=== PATIENT | female | born 1960 | race Caucasian/White ===

== ENCOUNTER 2018-08-22 10:00 | Observation (INO) | payer OTHER ==
[~2018-08-22 10:00] MED LIST: LIDOCAINE 1% 20 ML VIAL (10MG/ML) FOR IV START INTRADERMA PRN
[2018-08-22] MEDS: LACTATED RINGERS 1,000 ML IV SCH ×2 (10:39→20:19)
[2018-08-22] MEDS ORDERED: PROPOFOL 10 MG/ML 20 ML VIAL IV ONE (11:24)
--- NOTE | 2018-08-22 11:47 | P.PCN ---
Date of Procedure: 08/22/18 Procedure(s) Performed: Brief history: Patient is a pleasant 57-year-old pleasant white female, scheduled for an elective upper endoscopy as well as colonoscopy as a part of evaluation of epigastric abdominal pain, nausea vomiting and chronic diarrhea with progressive weight loss of 30 pounds in the last 6 months duration. She has been taking [id number] Pepcid and Imodium with some relief in her symptoms. Procedure performed: Esophagogastroduodenoscopy with biopsy Colonoscopy with biopsy Preoperative diagnosis: Abdominal pain/nausea vomiting Chronic diarrhea and weight loss of 30 pounds Anesthesia: MAC Procedure: After informed consent was obtained from the patient was brought into the endoscopy unit and IV sedation was administered by anesthesia under continuous monitoring. Initially upper endoscopy was done. The Olympus GF 160 video endoscope was inserted inserted into the mouth and esophagus intubated without any difficulty and was gradually advanced into the stomach and duodenum and carefully examined. The bulb and second part of the duodenum appeared normal. Biopsies were done from the duodenum to evaluate for celiac disease. The scope was then withdrawn into the stomach adequately insufflated with air and upon careful examination the antrum had mild gastritis and biopsies were done from this area. The body, cardia and fundus appeared normal. The scope was then withdrawn into the esophagus. Mall hiatal hernia noted. The GE junction was located at 40 cm to the incisors. It appeared regular with no erythema erosions or ulcerations. Rest of the esophagus appeared normal. Patient tolerated the procedure well. At this time the patient continued to remain sedation. Initial digital rectal examination was normal. Olympus CF 160 video colonoscope was then inserted into the rectum and gradually advanced to the cecum without any difficulty. Careful examination was performed as the scope was gradually being withdrawn. The prep was excellent. Terminal ileum was normal. The cecum, ascending colon , transverse colon, descending colon, sigmoid colon and rectum appeared normal. Random biopsies were done from the ascending and descending colon to rule out microscopic/collagenous colitis. Retroflexion was performed in the rectum and no lesions were noted. Patient tolerated the procedure well. Impression: 1. Upper endoscopy revealed mild antral gastritis and a small hiatal hernia 2. Colonoscopy was essentially within normal limits with no evidence of colitis or colorectal neoplasia. Recommendations: Findings of this examination were discussed with the patient as well as well as her family. She'll follow with the biopsy results. She was advised to start on Prilosec 20 mg daily half hour before breakfast and continue Imodium as needed. She will be seen in office in 1 week.]
[2018-08-22] MEDS ORDERED: ONDANSETRON 4 MG/2 ML VIAL IVP ONE (12:11)
[2018-08-22] MEDS ORDERED: ONDANSETRON ODT 4 MG TAB PO ONE (13:14)
[2018-08-22] MEDS ORDERED: PROCHLORPERAZINE 5 MG TAB PO STA (13:40)
[2018-08-22] MEDS ORDERED: FAMOTIDINE 20 MG/2 ML VIAL IV ONE (15:14)
--- NOTE | 2018-08-22 15:16 | XR ---
EXAMINATION TYPE: XR abdomen 2V DATE OF EXAM: 08/22/2018 COMPARISON: None INDICATION: Perforation post EGD and colonoscopy TECHNIQUE: Single view abdomen with mobile apparatus in the upright and supine views. FINDINGS: No free air is identified. Air is within the stomach and left upper quadrant of the abdome n. Nonspecific bowel gas within the midabdomen. No mass effect is evident in the supine view. Organom egaly is not present. Psoas margins are normal. What little bowel gas is present. IMPRESSION: 1. Unremarkable Abdomen 2. No free air or changes suggest bowel perforation or radiographically apparent.
--- NOTE | 2018-08-22 16:08 | CT ---
EXAMINATION TYPE: CT abdomen pelvis wo con DATE OF EXAM: 08/22/2018 HISTORY: Post colonoscopy and EGD, rectal bleeding, abdominal pain and vomiting. CT DLP: 366.1 mGycm. Automated Exposure Control for Dose Reduction was Utilized. TECHNIQUE: CT scan of the abdomen and pelvis is performed without oral or IV contrast. COMPARISON: Abdominal x-ray earlier today FINDINGS: Within the limitations of a non-contrast study, the following observations are made. LUNG BASES: No significant abnormality is appreciated. LIVER/GB: Gallbladder has distended margins but there is no abnormal dilatation or CT dense intralumi nal gallstones or surrounding inflammatory change. PANCREAS: No significant abnormality is seen. SPLEEN: No significant abnormality is seen. ADRENALS: No significant abnormality is seen. KIDNEYS: There is 6 mm calculus lower pole level left kidney coronal image 59. No right-sided renal c alculus. No hydronephrosis or obstructing ureter calculi identified. BOWEL: Evaluation bowel is slightly suboptimal secondary to lack of enteric contrast. There is no param picious small or large bowel dilatation identified GENITAL ORGANS: Anteverted uterus is seen. Just superior to uterus there is round low dense 5.7 x 5.3 cm lesion causing mass effect on bladder. LYMPH NODES: No greater than 1cm abdominal or pelvic lymph nodes are appreciated. OSSEOUS STRUCTURES: There is transitional-type L6 vertebra at lumbosacral junction. Some multilevel f acet arthropathy lower lumbar spine is seen OTHER: No significant additional abnormality is seen. IMPRESSION: 1. No pneumoperitoneum. No obstruction. No significant acute finding seen on noncontrast CT to accoun t for patient's symptoms. 2. There is thin walled 5.7 cm low dense pelvic lesion presumed left ovarian in etiology, this is abn ormal finding in postmenopausal female and cystic neoplasm cannot be excluded. Advise gynecology onco logy referral and consider nonemergent pelvic ultrasound to further evaluate and characterize.
[2018-08-22 16:26] LABS: Basophils % (A) 0 %; Eosinophils % (A) 0 %; HCT 40.1 % (34.0-46.0); HGB 13.1 gm/dL (11.4-16.0); Lymphocytes # (A) 1.1 k/uL (1.0-4.8); Lymphocytes % (A) 6 %; MCH 30.2 pg (25.0-35.0); MCHC 32.8 g/dL (31.0-37.0); MCV 92.1 fL (80.0-100.0); Mean Platelet Volume 6.4; Monocytes # (A) 0.5 k/uL (0-1.0); Monocytes % (A) 3 %; Neutrophils # (A) 16.3 k/uL (1.3-7.7); Neutrophils % (A) 91 %; Platelet Count 321 k/uL (150-450); RBC 4.36 m/uL (3.80-5.40); RDW 11.8 % (11.5-15.5)
[2018-08-22 16:29] LABS: ALT 31 U/L (9-52); AST 25 U/L (14-36); Albumin 3.7 g/dL (3.5-5.0); Alkaline Phosphatase 66 U/L (38-126); Anion Gap 13 mmol/L; Blood Urea Nitrogen 19 mg/dL (7-17); Calcium 9.8 mg/dL (8.4-10.2); Carbon Dioxide 18 mmol/L (22-30); Chloride 110 mmol/L (98-107); Glucose 144 mg/dL (74-99); Potassium 3.7 mmol/L (3.5-5.1); Sodium 141 mmol/L (137-145); Total Bilirubin 0.8 mg/dL (0.2-1.3); Total Protein 6.3 g/dL (6.3-8.2)
[2018-08-22] MEDS ORDERED: ONDANSETRON 4 MG/2 ML VIAL IVP PRN (17:36)
[2018-08-22] MEDS ORDERED: ACETAMINOPHEN IV (For NPO) 1,000 MG in EMPTY BAG 1 BAG IVPB PRN (17:38)
[2018-08-22] MEDS ORDERED: IPRATROPIUM-ALBUTEROL 3 ML NEB INHALATION PRN (17:40)
[2018-08-22] MEDS ORDERED: TRIMETHOBENZAMIDE 100 MG/ML 2 ML VIAL IM PRN (17:45)
[2018-08-22] MEDS: METOCLOPRAMIDE 5 MG/ML 2 ML VIAL IVP SCH (17:52)
[2018-08-22] MEDS: IPRATROPIUM-ALBUTEROL 3 ML NEB INHALATION SCH (19:52)
[2018-08-22 20:09] VITALS: BMI 24.5
[2018-08-22] MEDS: PANTOPRAZOLE 40 MG/10 ML VIAL IVP SCH (20:30)
[2018-08-23] MEDS: METOCLOPRAMIDE 5 MG/ML 2 ML VIAL IVP SCH ×2 (04:20→09:05)
[2018-08-23] MEDS: LACTATED RINGERS 1,000 ML IV SCH ×2 (04:20→04:21)
[2018-08-23 04:56] VITALS: RESP 16
[2018-08-23] MEDS ORDERED: LEVOTHYROXINE 137 MCG TAB PO SCH (06:30)
[2018-08-23] MEDS: IPRATROPIUM-ALBUTEROL 3 ML NEB INHALATION SCH ×2 (07:13→10:58)
[2018-08-23 07:49] VITALS: BP 116/64; PULSE 80; TEMP 99.2
[2018-08-23] MEDS ORDERED: SYMBICORT 160-4.5 MCG INHALER INHALATION SCH (08:00)
[2018-08-23 08:07] LABS: Basophils % (A) 0 %; Eosinophils # (A) 0.1 k/uL (0-0.7); Eosinophils % (A) 0 %; HCT 37.8 % (34.0-46.0); HGB 12.6 gm/dL (11.4-16.0); Lymphocytes # (A) 1.9 k/uL (1.0-4.8); Lymphocytes % (A) 16 %; MCHC 33.4 g/dL (31.0-37.0); MCV 92.7 fL (80.0-100.0); Mean Platelet Volume 6.5; Monocytes # (A) 0.8 k/uL (0-1.0); Monocytes % (A) 7 %; Neutrophils # (A) 8.5 k/uL (1.3-7.7); Neutrophils % (A) 75 %; Platelet Count 290 k/uL (150-450); RBC 4.08 m/uL (3.80-5.40); WBC 11.4 k/uL (3.8-10.6)
[2018-08-23 08:16] LABS: Anion Gap 6 mmol/L; Blood Urea Nitrogen 15 mg/dL (7-17); Calcium 9.5 mg/dL (8.4-10.2); Carbon Dioxide 24 mmol/L (22-30); Chloride 111 mmol/L (98-107); Glucose 85 mg/dL (74-99); Potassium 3.9 mmol/L (3.5-5.1); Sodium 141 mmol/L (137-145)
[2018-08-23] MEDS: PANTOPRAZOLE 40 MG/10 ML VIAL IVP SCH (09:04)
--- NOTE | 2018-08-23 10:29 | P.HPIM ---
History of Present Illness H&P Date: 08/23/18 Chief Complaint: Nausea vomiting diarrhea abdominal pain 57-year-old female patient of Dr. Tao past medical history of asthma, hypothyroidism, ovarian cyst, and GERD. Patient presented yesterday for outpatient EGD colonoscopy secondary to persistent abdominal discomfort nausea, nonbloody emesis and nonbloody diarrhea without fever since March with an approximate 30 pound unintentional weight loss. [place] symptoms and states she underwent a battery of tests and was told it was possibly viral/gastroenteritis and discharged. Patient describes her abdominal pain as a "discomfort" generalized across the midabdomen with intermittent bloating. Takes Aleve intermittently as a needed. Intermittent dyspepsia. Appetite preserved but intolerant to spicy rich foods. She averages 1-2 loose bowel movements on a daily basis. No history of bowel disorders or inflammatory bowel diseases. EGD revealed mild antral gastritis and a small hiatal hernia. Colonoscopy was essentially within normal limits with no evidence of colitis or colorectal neoplasia random biopsies were obtained to rule out microscopic collagenous colitis. Postop patient experienced increased abdominal discomfort nausea abdominal x-rays Unremarkable no free air or changes to suggest bowel perforation. Computed tomography scan abdomen and pelvis without contrast reported no evidence of pneumoperitoneum no obstruction. No significant acute findings to account for patient's symptoms. Thin-walled 5.7 cm low dense pelvic lesion presumed left ovarian in etiology this is abnormal finding and postmenopausal female in cystic neoplasm could not be excluded. Advise MA[employer] PRINTER oncology referral and nonemergent pelvic ultrasound for further evaluation and characterization. Presently patient is resting comfortably tolerating a light diet. She passed a mildly blood tinged bowel movement postprocedure yesterday without recurrence. Presently no reports of hematemesis hematochezia or melena. Denies unusual vaginal discharge. She reports a history of cystic ovarian lesion many years ago that was laparoscopically removed by her MASTER PRINTER Dr. Pineda [facility]. Post endoscopic white count 18 presently 11.4. Hemoglobin 13.1 presently 12.6. Platelet 290. Sodium 141. Potassium 3.9. BUN 15. Creatinine 0.6. LFTs within normal limits. Afebrile. Normotensive blood pressures. Review of Systems Constitutional: Denies fever, chills, sweats, weight gain, reports weight loss. HEENT: Negative for migraines, blurred vision or loss, earaches, drainage, tinnitus, oral mucosal lesions, dysphagia, or odynophagia. CARDIAC: Negative for chest pain, arrhythmias, or palpitation. RESPIRATORY: Negative for shortness of breath, hemoptysis, cough, or sputum production. GI: See HPI for pertinent findings. : Negative for hematuria, urgency, frequency, polyuria, or dysuria. GYNc: Negative vaginal discharge. MUSCULOSKELETAL: Negative for muscle aches, swelling, arthritis, and arthralgias. NEUROLOGIC: Negative for stroke or TIA. ENDOCRINE: History of hypothyroidism. SKIN: Negative for rash or itching. 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 History of Any Multi-Drug Resistant Organisms: None Reported Past Surgical History: Orthopedic Surgery Additional Past Surgical History / Comment(s): OVARIAN CYST, CARPAL TUNNEL Past Anesthesia/Blood Transfusion Reactions: Motion Sickness, Postoperative Nausea & Vomiting (PONV) Past Psychological History: No Psychological Hx Reported Smoking Status: Never smoker Past Alcohol Use History: None Reported Past Drug Use History: None Reported - Past Family History Mother Family Medical History: Cancer Additional Family Medical History / Comment(s): BREAST CANCER Father Family Medical History: Blood Disorder Additional Family Medical History / Comment(s): VON WILLEBRAND CLOTTING DISORDER. Medications and Allergies Home Medications Medication Instructions Recorded Confirmed Type Albuterol Sulfate [Proair Hfa] 1 - 2 puff INHALATION RT-Q6H PRN 08/17/18 History Fluticasone/Salmeterol 1 puff INHALATION RT-DAILY 08/17/18 08/22/18 History [Fluticasone-Salmeterol 113-14] L.acidoph,Paracasei, B.lactis 1 cap PO DAILY 08/17/18 08/22/18 History [Probiotic] Levothyroxine Sodium 137 mcg PO DAILY 08/17/18 08/22/18 History Pepcid (Unknown Dose) 1 tab PO DAILY PRN 08/17/18 08/22/18 History Pravastatin Sodium [Pravachol] 20 mg PO HS 08/17/18 08/22/18 History Loperamide HCl [Imodium A-D] 2 - 4 mg PO QID PRN 08/22/18 08/22/18 History Allergies Allergy/AdvReac Type Severity Reaction Status Date / Time apple Allergy Unknown ITCHY Verified 08/22/18 23:22 THROAT beverly Allergy Unknown ITCHY Verified 08/22/18 23:22 THROAT FRUIT FROM TREES Allergy Unknown ITCHY Uncoded 08/17/18 12:06 THROAT Physical Exam Vitals: Vital Signs Temp Pulse Resp BP BP Pulse Ox 08/23/18 07:30 99.2 F 80 16 116/64 97 08/23/18 00:26 98.4 F 95 16 104/65 95 08/22/18 20:00 97.9 F 65 20 121/69 99 08/22/18 19:40 98.3 F 65 16 126/76 95 08/22/18 17:13 97.7 F 64 20 110/69 99 08/22/18 16:43 63 16 132/62 97 08/22/18 15:59 97.3 F L 63 16 119/59 97 08/22/18 15:10 63 16 119/59 97 08/22/18 14:47 63 16 122/66 97 08/22/18 14:27 66 16 117/59 99 08/22/18 14:03 96.7 F L 69 16 149/83 99 08/22/18 13:46 65 16 146/76 98 08/22/18 12:57 64 18 154/76 98 08/22/18 12:19 64 18 122/75 98 08/22/18 11:57 64 18 134/76 97 08/22/18 10:31 98.8 F 72 18 151/83 98 Intake and Output 08/22/18 08/23/18 08/23/18 22:59 06:59 14:59 Intake Total 300 1060 Output Total 51 Balance 249 1060 Intake: Intake, IV Titration 820 Amount Lactated Ringers 1,000 ml 820 @ 100 mls/hr IV .Q10H [facility] Rx#:[id number] Oral 300 240 Output: Stool 1 Emesis 50 Other: # Voids 2 3 Weight 58.967 kg General appearance: The patient is alert, oriented, in no acute distress. HET: Head is normocephalic and atraumatic. Pupils are equal and reactive. Oropharynx is clear without lesions. Neck: Supple without lymphadenopathy. Trachea midline. Heart: S1 S2. Regular rate and rhythm. Lungs: No crackles or wheezes are heard. Abdomen: Soft, nontender, nondistended with bowel sounds. No peritoneal signs. No palpable organomegaly or masses. Extremities: Normal skin color and turgor. No cyanosis, rash, ulceration, clubbing, or edema. Radial and pedal pulses are 2/4 bilaterally. Neurological: No focal deficits. Strength and sensation are grossly intact. Results CBC & Chem 7: 08/23/18 07:39 08/23/18 07:39 Labs: Abnormal Lab Results - Last 24 Hours (Table) 08/22/18 08/22/18 08/23/18 Range/Units 15:39 15:39 07:39 WBC 18.0 H 11.4 H (3.8-10.6) k/uL Neutrophils # 16.3 H 8.5 H (1.3-7.7) k/uL Chloride 110 H (98-107) mmol/L Carbon Dioxide 18 L (22-30) mmol/L BUN 19 H (7-17) mg/dL Glucose 144 H (74-99) mg/dL 08/23/18 Range/Units 07:39 WBC (3.8-10.6) k/uL Neutrophils # (1.3-7.7) k/uL Chloride 111 H (98-107) mmol/L Carbon Dioxide (22-30) mmol/L BUN (7-17) mg/dL Glucose (74-99) mg/dL Abdominal x-ray: report reviewed (Dr. Ewing) CT scan - abdomen: report reviewed (Dr. Ewing) Thrombosis Risk Factor Assmnt - DVT/VTE Prophylaxis DVT/VTE Prophylaxis: Low risk, early ambulation encouraged - Choose All That Apply Each Factor Represents 1 point: Acute LA Other Risk Factors: No Other congenital or acquired thrombophilia - If yes, enter type in comment: No Thrombosis Risk Factor Assessment Total Risk Factor Score: 1 Thrombosis Risk Factor Assessment Level: Low Risk Assessment and Plan (1) Abdominal pain Narrative/Plan: 57-year-old female with a 5 month history of intractable nausea vomiting nonbloody diarrhea abdominal pain of unclear etiology. Status post EGD colonoscopy essentially within normal limits random biopsies obtained to rule out microscopic collagenous colitis. She developed postoperative abdominal discomfort nausea CT abdomen ruled out pneumoperitoneum and bowel obstruction however thin walled 5.7 cm cystic lesion was identified presumed left ovarian in etiology cystic neoplasm could not be excluded. Current Visit: Yes Status: Acute Code(s): R10.9 - UNSPECIFIED ABDOMINAL PAIN SNOMED Code(s): 72825312 (2) Nausea & vomiting Current Visit: Yes Status: Acute Code(s): R11.2 - NAUSEA WITH VOMITING, UNSPECIFIED SNOMED Code(s): 93090998 (3) Diarrhea Current Visit: Yes Status: Acute Code(s): R19.7 - DIARRHEA, UNSPECIFIED SNOMED Code(s): 69843471 (4) Unintentional weight loss Current Visit: Yes Status: Acute Code(s): R63.4 - ABNORMAL WEIGHT LOSS SNOMED Code(s): 934950019 (5) Ovarian cyst, left Current Visit: Yes Status: Acute Code(s): N83.202 - UNSPECIFIED OVARIAN CYST , LEFT SIDE SNOMED Code(s): 16045779 (6) Hypothyroidism Current Visit: Yes Status: Chronic Code(s): E03.9 - HYPOTHYROIDISM, UNSPECIFIED SNOMED Code(s): 73075131 (7) GERD (gastroesophageal reflux disease) Current Visit: Yes Status: Chronic Code(s): K21.9 - GASTRO-ESOPHAGEAL REFLUX DISEASE WITHOUT ESOPHAGITIS SNOMED Code(s): 136498480 Plan: 1. CT results were discussed with patient and her spouse she was offered inpatient MASTER PRINTER consultation if she is not able to follow-up with her personal MASTER PRINTER in a timely fashion. She agreed to decline inpatient MASTER PRINTER evaluation and will follow-up with her personal MASTER PRINTER Dr. Pineda for further evaluation on August 31. Follow up in GI office on August 27 to discuss biopsy results. Continue with GI prophylaxis Pepcid 20 mg daily may take up to twice daily as needed. If no relief from Pepcid patient may try Prilosec 20 mg daily [id number] as well as Imodium as needed for diarrhea. Avoid NSAIDs as this may exacerbate her diarrhea until colonic biopsies can be discussed. Extra Strength Tylenol was advised for abdominal discomfort. Diet as tolerated. All questions were answered to her satisfaction. This history and physical was discussed with Dr. Ewing. The impression and plan a care have been directed as dictated.
--- NOTE | 2018-08-23 11:01 | P.DS ---
Providers Date of admission: 08/22/18 21:40 Expected date of discharge: 08/23/18 Attending physician: Stephanie Wiggins Primary care physician: He Tao - Discharge Diagnosis(es) (1) Abdominal pain Current Visit: Yes Status: Acute (2) Nausea & vomiting Current Visit: Yes Status: Acute (3) Diarrhea Current Visit: Yes Status: Acute (4) Unintentional weight loss Current Visit: Yes Status: Acute (5) Ovarian cyst, left Current Visit: Yes Status: Acute (6) Hypothyroidism Current Visit: Yes Status: Chronic (7) GERD (gastroesophageal reflux disease) Current Visit: Yes Status: Chronic Hospital Course: 57-year-old female presented for outpatient EGD colonoscopy for evaluation of persistent nausea vomiting abdominal pain and diarrhea 5 months with unintentional 30 pound weight loss. Post-endoscopy she developed increased abdominal pain nausea. She was kept overnight for observation. CT abdomen and abdominal film imaging reported no evidence of pneumoperitoneum or bowel obstruction however CT reported a thin-walled 5.7 cm cystic lesion felt to be arising from the left ovary cystic neoplasm could not be excluded. Prior to discharge she was tolerating a light diet without abdominal pain. No evidence of hematemesis hematochezia or melena. CT results were discussed with her the option of inpatient [employer]OR OF [employer] consultation and further workup with CT findings however after discussion with her spouse she expressed desire to follow up with her own [employer]ETING appointment scheduled August 31. Pertinent Studies: Abdominal x-ray CT abdomen and pelvis Procedures: EGD colonoscopy performed 08/22/2018 Patient Condition at Discharge: Stable Plan - Discharge Summary Discharge Rx Participant: Yes New Discharge Prescriptions: Continue Levothyroxine Sodium 137 mcg PO DAILY Albuterol Sulfate [Proair Hfa] 1 - 2 puff INHALATION RT-Q6H PRN PRN Reason: Shortness Of Breath Pravastatin Sodium [Pravachol] 20 mg PO HS Pepcid (Unknown Dose) 1 tab PO DAILY PRN PRN Reason: Heartburn L.acidoph,Paracasei, B.lactis [Probiotic] 1 cap PO DAILY Fluticasone/Salmeterol [Fluticasone-Salmeterol 113-14] 1 puff INHALATION RT- DAILY Loperamide HCl [Imodium A-D] 2 - 4 mg PO QID PRN PRN Reason: Diarrhea Discontinued Naproxen Sodium [Aleve] 220 mg PO DAILY PRN PRN Reason: Pain Discharge Medication List Albuterol Sulfate [Proair Hfa] 1 - 2 puff INHALATION RT-Q6H PRN 08/17/18 [ History] Fluticasone/Salmeterol [Fluticasone-Salmeterol 113-14] 1 puff INHALATION RT- DAILY 08/17/18 [History] L.acidoph,Paracasei, B.lactis [Probiotic] 1 cap PO DAILY 08/17/18 [History] Levothyroxine Sodium 137 mcg PO DAILY 08/17/18 [History] Pepcid (Unknown Dose) 1 tab PO DAILY PRN 08/17/18 [History] Pravastatin Sodium [Pravachol] 20 mg PO HS 08/17/18 [History] Loperamide HCl [Imodium A-D] 2 - 4 mg PO QID PRN 08/22/18 [History] Follow up Appointment(s)/Referral(s): Lulu Ewing MD [STAFF PHYSICIAN] - 09/03/18 4:30 pm Patient Instructions/Handouts: *Surgery [facility] - (Anesthesia) Endoscopy Discharge Instructions, Hiatal Hernia (DC), Gastritis (DC), Colonoscopy (DC), Upper Endoscopy (DC)
== END 2018-08-23 11:35 | disposition home or self-care (01) ==
LOC: ORWHC2ENDO 10:00 → 4SSUR 16:26 → ORWHC2ENDO 22:09
PROVIDERS: ADMIT Internal Medicine Gastroenterology; ATTEND Internal Medicine Gastroenterology
DX: K52.9 Noninfective gastroenteritis and colitis, unspecified (principal); R11.2 Nausea with vomiting, unspecified; K21.9 Gastro-esophageal reflux disease without esophagitis; R63.4 Abnormal weight loss; J45.909 Unspecified asthma, uncomplicated; N83.202 Unspecified ovarian cyst, left side; E03.9 Hypothyroidism, unspecified; Z68.24 Body mass index [BMI] 24.0-24.9, adult; D68.0 Von Willebrand disease; Z80.3 Family history of malignant neoplasm of breast; Z79.899 Other long term (current) drug therapy; Z79.890 Hormone replacement therapy; Z91.018 Allergy to other foods; I25.2 Old myocardial infarction
CPT/HCPCS: 88305; 80053; 80048; 85025 ×2; 74019; 74176; 45380; 43239; G0378 ×2; S0183; J2765; J2405; J2704; C9113 ×2

== ENCOUNTER → 2019-05-24 | Outpatient (CLI) | payer OTHER ==
--- NOTE | 2019-05-24 12:23 | XR ---
EXAMINATION TYPE: XR shoulder complete LT DATE OF EXAM: 05/24/2019 CLINICAL HISTORY: Left shoulder pain TECHNIQUE: Three views of the left shoulder are obtained. COMPARISON: None. FINDINGS: There is no acute fracture/dislocation evident in the left shoulder. There is a sclerotic focus that appears well marginated within the humeral head, likely a benign bone island. However on the internal rotation view this may be located outside the humeral head. The acromioclavicular and gl enohumeral joint spaces appear aligned however there is mild acromioclavicular arthropathy with small marginal osteophytes. The visualized ribs are intact and unremarkable. IMPRESSION: 1. No acute fracture or dislocation in the left shoulder. 2. Mild left acromioclavicular arthropathy. 3. Well marginated rounded focus of the humeral head may represent a benign bone island. On a single view this appears outside of the humerus and loose joint body is possible.
== END | disposition home or self-care (01) ==
LOC: RADXRYALE 11:55
PROVIDERS: ATTEND Family Medicine
DX: M12.812 Other specific arthropathies, not elsewhere classified, left shoulder (principal)

== ENCOUNTER 2019-07-10 20:51 | Observation (INO) | payer OTHER ==
[2019-07-10] MEDS ORDERED: SODIUM CHLORIDE 0.9% 1,000 ML IV STA (21:16)
--- NOTE | 2019-07-10 21:17 | ED ---
Nausea/Vomiting/Diarrhea HPI - General Chief complaint: Nausea/Vomiting/Diarrhea Stated complaint: NVD Time Seen by Provider: 07/10/19 21:15 Source: patient Mode of arrival: ambulatory Limitations: no limitations - History of Present Illness Initial comments: Carol jogahn-[id number]-bey female with a history of chronic nausea, vomiting, diarrhea, patient is followed with gastroenterology for over a year due to the symptoms. Patient reports the symptoms wax and wane. She's been compliant with her medications including PPI, antiemetic, probiotics and them as needed. Patient states that approximately 3 days ago she isn't possible that she thought made her sick. She states that for the past 3 days she's had persistent nausea and inability to tolerate any by mouth intake and multiple bouts of nonbloody diarrhea. Patient reports at this time she's having watery diarrhea to the point that she occasionally can't even make it to the bathroom. She's not been on any antibiotics recently she has no history of C. diff. She reports diffuse crampy abdominal pain which worsens with bouts of diarrhea and waxes and wanes. Patient's last colonoscopy was approximately one year ago was unremarkable at that time though she did have significant pain after the procedure and was admitted to the hospital due to concern for possible bowel perforation. - Related Data Home Medications Medication Instructions Recorded Confirmed Albuterol Sulfate [Proair Hfa] 1 - 2 puff INHALATION RT-Q6H PRN 08/17/18 07/10/19 Fluticasone/Salmeterol 1 puff INHALATION RT-DAILY 08/17/18 07/10/19 [Fluticasone-Salmeterol 113-14] L.acidoph,Paracasei, B.lactis 1 cap PO DAILY 08/17/18 07/10/19 [Probiotic] Loperamide HCl [Imodium A-D] 2 - 4 mg PO QID PRN 08/22/18 07/10/19 Cholestyramine (with Sugar) 4 gm PO DAILY 07/10/19 07/10/19 [Cholestyramine Packet] Levothyroxine Sodium [Synthroid] 112 mcg PO DAILY 07/10/19 07/10/19 Allergies Allergy/AdvReac Type Severity Reaction Status Date / Time apple Allergy Unknown ITCHY Verified 07/10/19 21:17 THROAT beverly Allergy Unknown ITCHY Verified 07/10/19 21:17 THROAT FRUIT FROM TREES Allergy Unknown ITCHY Uncoded 08/17/18 12:06 THROAT Review of Systems ROS Statement: Those systems with pertinent positive or pertinent negative responses have been documented in the HPI. ROS Other: All systems not noted in ROS Statement are negative. 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 History of Any Multi-Drug Resistant Organisms: None Reported Past Surgical History: Orthopedic Surgery Additional Past Surgical History / Comment(s): OVARIAN CYST, CARPAL TUNNEL Past Anesthesia/Blood Transfusion Reactions: Motion Sickness, Postoperative Nausea & Vomiting (PONV) Past Psychological History: No Psychological Hx Reported Smoking Status: Never smoker Past Alcohol Use History: None Reported Past Drug Use History: None Reported - Past Family History Mother Family Medical History: Cancer Additional Family Medical History / Comment(s): BREAST CANCER Father Family Medical History: Blood Disorder Additional Family Medical History / Comment(s): VON WILLEBRAND CLOTTING DISORDER. General Exam - General Exam Comments Initial Comments: Physical Exam GENERAL: Appears dehydrated HENT: Normocephalic, Atraumatic. Dry mucous membranes EYES: PERRL, EOMI PULMONARY: Unlabored respirations. No audible rales rhonchi or wheezing was noted. CARDIOVASCULAR: There is a regular rate and rhythm without any murmurs gallops or rubs. ABDOMEN: Soft and nontender with normal bowel sounds. Non-peritoneal SKIN: Skin is clear with no lesions or rashes and otherwise unremarkable. : Deferred NEUROLOGIC: Patient is alert and oriented x3. Moving all extremities spontaneously MUSCULOSKELETAL: Normal extremities with adequate strength and full range of motion. No lower extremity swelling or edema. No calf tenderness. PSYCHIATRIC: Normal psychiatric evaluation. Limitations: no limitations Course Vital Signs 07/10/19 07/10/19 21:04 22:02 Temperature 98.5 F 98.6 F Pulse Rate 73 64 Respiratory 18 18 Rate Blood Pressure 122/82 119/82 O2 Sat by Pulse 100 96 Oximetry Medical Decision Making - Medical Decision Making Patient was seen and evaluated patient's had 3 days of nausea vomiting diarrhea. Labs and imaging were ordered Labs with no significant abnormalities no evidence of dehydration L or joint abnormalities however patient did have multiple episodes of diarrhea while in the emergency department. Given patient's symptoms she doesn't feel comfortable going home at this time. Patient will be placed in observation, Zofran, Reglan and Benadryl as well as Bentyl were ordered GI was consulted for continuity of care - Lab Data Result diagrams: 07/10/19 21:36 07/10/19 21:36 Lab Results 07/10/19 07/10/19 07/10/19 Range/Units 21:36 21:36 21:36 WBC 7.9 (3.8-10.6) k/uL RBC 4.97 (3.80-5.40) m/uL Hgb 14.7 (11.4-16.0) gm/dL Hct 45.6 (34.0-46.0) % MCV 91.8 (80.0-100.0) fL MCH 29.5 (25.0-35.0) pg MCHC 32.1 (31.0-37.0) g/dL RDW 12.0 (11.5-15.5) % Plt Count 315 (150-450) k/uL Neutrophils % 84 % Lymphocytes % 5 % Monocytes % 6 % Eosinophils % 1 % Basophils % 3 % Neutrophils # 6.6 (1.3-7.7) k/uL Lymphocytes # 0.4 L (1.0-4.8) k/uL Monocytes # 0.5 (0-1.0) k/uL Eosinophils # 0.1 (0-0.7) k/uL Basophils # 0.2 (0-0.2) k/uL Sodium 138 (137-145) mmol/L Potassium 3.7 (3.5-5.1) mmol/L Chloride 100 (98-107) mmol/L Carbon Dioxide 22 (22-30) mmol/L Anion Gap 16 mmol/L BUN 17 (7-17) mg/dL Creatinine 0.77 (0.52-1.04) mg/dL Est GFR (CKD-EPI)AfAm >90 (>60 ml/min/1.73 sqM) Est GFR (CKD-EPI)NonAf 84 (>60 ml/min/1.73 sqM) Glucose 108 H (74-99) mg/dL Calcium 9.7 (8.4-10.2) mg/dL Magnesium 2.2 (1.6-2.3) mg/dL Total Bilirubin 0.6 (0.2-1.3) mg/dL AST 32 (14-36) U/L ALT 34 (9-52) U/L Alkaline Phosphatase 88 (38-126) U/L Total Protein 7.8 (6.3-8.2) g/dL Albumin 4.7 (3.5-5.0) g/dL Lipase 96 (23-300) U/L Urine Color Yellow Urine Appearance Cloudy H (Clear) Urine pH 5.5 (5.0-8.0) Ur Specific [place] 1.028 (1.001-1.035) Urine Protein 1+ H (Negative) Urine Glucose (UA) Negative (Negative) Urine Ketones 2+ H (Negative) Urine Blood Small H (Negative) Urine Nitrite Negative (Negative) Urine Bilirubin Negative (Negative) Urine Urobilinogen 2.0 (<2.0) mg/dL Ur Leukocyte Esterase Negative (Negative) Urine WBC 1 (0-5) /hpf Ur Squamous Epith Cells 2 (0-4) /hpf Urine Bacteria Rare H (None) /hpf Urine Mucus Many H (None) /hpf Disposition Clinical Impression: Nausea & vomiting, Diarrhea, Abdominal pain Disposition: ADMITTED IP TO THIS HOSP Condition: Stable Is patient prescribed a controlled substance at d/c from ED?: No Referrals: He Tao DO [Primary Care Provider] - 1-2 days
[2019-07-10] MEDS ORDERED: FAMOTIDINE 20 MG/2 ML VIAL IV STA (21:48)
[2019-07-10] MEDS ORDERED: ONDANSETRON 4 MG/2 ML VIAL IVP STA (21:48)
[2019-07-10 21:50] LABS: Basophils # (A) 0.2 k/uL (0-0.2); Basophils % (A) 3 %; Eosinophils # (A) 0.1 k/uL (0-0.7); Eosinophils % (A) 1 %; HCT 45.6 % (34.0-46.0); HGB 14.7 gm/dL (11.4-16.0); Lymphocytes # (A) 0.4 k/uL (1.0-4.8); Lymphocytes % (A) 5 %; MCH 29.5 pg (25.0-35.0); MCHC 32.1 g/dL (31.0-37.0); MCV 91.8 fL (80.0-100.0); Mean Platelet Volume 6.1; Monocytes # (A) 0.5 k/uL (0-1.0); Monocytes % (A) 6 %; Neutrophils # (A) 6.6 k/uL (1.3-7.7); Neutrophils % (A) 84 %; Platelet Count 315 k/uL (150-450); RBC 4.97 m/uL (3.80-5.40); WBC 7.9 k/uL (3.8-10.6)
[2019-07-10 21:59] LABS: ALT 34 U/L (9-52); AST 32 U/L (14-36); African American GFR (CKD) >90 (>60 ml/min/1.73 sqM); Albumin 4.7 g/dL (3.5-5.0); Alkaline Phosphatase 88 U/L (38-126); Anion Gap 16 mmol/L; Blood Urea Nitrogen 17 mg/dL (7-17); Calcium 9.7 mg/dL (8.4-10.2); Carbon Dioxide 22 mmol/L (22-30); Chloride 100 mmol/L (98-107); Glucose 108 mg/dL (74-99); Magnesium 2.2 mg/dL (1.6-2.3); Potassium 3.7 mmol/L (3.5-5.1); Sodium 138 mmol/L (137-145); Total Bilirubin 0.6 mg/dL (0.2-1.3); Total Protein 7.8 g/dL (6.3-8.2)
--- NOTE | 2019-07-10 21:59 | XR ---
EXAMINATION TYPE: XR KUB DATE OF EXAM: 07/10/2019 COMPARISON: 08/22/2018 HISTORY: Abdominal pain TECHNIQUE: 2 views FINDINGS: 2 views upright show no sign of intestinal obstruction or pneumoperitoneum. Fecal pattern i s normal. There is a 4 mm calcification over the lower pole left kidney. Lung bases are clear. There is no sign of a mass. IMPRESSION: Nonacute abdomen. Possible left renal calculus.
[2019-07-10 22:00] LABS: Appearance,Urine Cloudy (Clear); Bacteria,Urine Rare /hpf; Bilirubin,Urine Negative (Negative); Blood,Urine Small (Negative); Color,Urine Yellow; Glucose,Urine (UA) Negative (Negative); Ketones,Urine 2+ (Negative); Leukocyte Esterase,Urine Negative (Negative); Mucus,Urine Many /hpf; Nitrite,Urine Negative (Negative); PH, Urine 5.5 (5.0-8.0); Protein,Urine 1+ (Negative); Specific Gravity,Urine 1.028 (1.001-1.035); Squamous Epithelial Cell,Urine 2 /hpf (0-4)
[2019-07-10] MEDS ORDERED: ONDANSETRON 4 MG/2 ML VIAL IVP PRN (22:38)
[2019-07-10] MEDS ORDERED: NALOXONE 0.4 MG/ML 1 ML VIAL IV PRN (22:38)
[2019-07-10] MEDS ORDERED: DICYCLOMINE 10 MG/ML 2 ML AMP IM STA (22:41)
[2019-07-10] MEDS ORDERED: METOCLOPRAMIDE 5 MG/ML 2 ML VIAL IVP PRN (22:41)
[2019-07-10] MEDS ORDERED: diphenhydrAMINE 50 MG/ML 1 ML VIAL IVP PRN (22:41)
[2019-07-10] MEDS: SODIUM CHLORIDE 0.9% 1,000 ML IV SCH (23:17)
[2019-07-11] MEDS ORDERED: LOPERAMIDE 2 MG CAP PO PRN (11:18)
[2019-07-11] MEDS ORDERED: ALBUTEROL NEBULIZED 2.5 MG/3 ML INHALATION PRN (11:18)
[2019-07-11] MEDS: SODIUM CHLORIDE 0.9% 1,000 ML IV SCH ×2 (11:43→22:07)
--- NOTE | 2019-07-11 13:52 | P.HPIM ---
History of Present Illness 1-year-old female with a history of chronic diarrhea has been going on for about one year feeling better lately after symptomatic treatment. Patient is undergoing evaluation as an outpatient and gastroenterology clinic and had a col onoscopy which was within normal limits and the radiology set being worked up as an outpatient came in with symptoms of multiple of episodes of diarrhea which started Monday. Patient this time is also having epigastric abdominal discomfort along with nausea vomiting. C. diff is being obtained patient will be resumed on symptomatically therapy for diarrhea possible as positive C. diff is extremely low. We'll studies as per gastroenterology gastroneurology was consulted. Patient is requesting nutrition consult as she cannot tolerate diet 3 stuff including cheese which may be contributing to his chronic diarrhea 2. Acute diarrhea may be related to gastroenteritis although patient denied any fever chills body aches. Patient's serum creatinine is within normal lives patient clinically doesn't appear to be much dehydrated either. Patient denied any blood in stools. Patient denied any recent travel or camping. Patient denied any dysuria or increased urinary frequency and weakness with abnormal but not concerning for urinary tract infection. Review of Systems REVIEW OF SYSTEMS: CONSTITUTIONAL: No fever, no malaise, no fatigue. HEENT: No recent visual problems or hearing problems. Denied any sore throat. CARDIOVASCULAR: No chest pain, orthopnea, PND, no palpitations, no syncope. PULMONARY: No shortness of breath, no cough, no hemoptysis. GASTROINTESTINAL: As mentioned in HPI NEUROLOGICAL: No headaches, no weakness, no numbness. HEMATOLOGICAL: Denies any bleeding or petechiae. GENITOURINARY: Denies any burning micturition, frequency, or urgency. MUSCULOSKELETAL/RHEUMATOLOGICAL: Denies any joint pain, swelling, or any muscle pain. ENDOCRINE: Denies any polyuria or polydipsia. The rest of the 14-point review of systems is negative. 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., STATES SHE IS HAVING VOMITING AND DIARRHEA., WT LOSS OF 25 # OVER THE LAST year History of Any Multi-Drug Resistant Organisms: None Reported Past Surgical History: Orthopedic Surgery Additional Past Surgical History / Comment(s): OVARIAN CYST x 2 , CARPAL TUNNEL Past Anesthesia/Blood Transfusion Reactions: Motion Sickness, Postoperative Nausea & Vomiting (PONV) Past Psychological History: No Psychological Hx Reported Smoking Status: Never smoker Past Alcohol Use History: None Reported Past Drug Use History: None Reported - Past Family History Mother Family Medical History: Cancer Additional Family Medical History / Comment(s): BREAST CANCER Father Family Medical History: Blood Disorder Additional Family Medical History / Comment(s): VON WILLEBRAND CLOTTING DISORDER. Medications and Allergies Home Medications Medication Instructions Recorded Confirmed Type Albuterol Sulfate [Proair Hfa] 1 - 2 puff INHALATION RT-Q6H PRN 08/17/1811/27 History Fluticasone/Salmeterol 1 puff INHALATION RT-DAILY 08/17/18 07/10/19 History [Fluticasone-Salmeterol 113-14] L.acidoph,Paracasei, B.lactis 1 cap PO DAILY 08/17/18 07/10/19 History [Probiotic] Loperamide HCl [Imodium A-D] 2 - 4 mg PO QID PRN 08/22/18 07/10/19 History Cholestyramine (with Sugar) 4 gm PO DAILY 07/10/19 07/10/19 History [Cholestyramine Packet] Levothyroxine Sodium [Synthroid] 112 mcg PO DAILY 07/10/19 07/10/19 History Allergies Allergy/AdvReac Type Severity Reaction Status Date / Time apple Allergy Unknown ITCHY Verified 07/10/19 21:17 THROAT beverly Allergy Unknown ITCHY Verified 07/10/19 21:17 THROAT FRUIT FROM TREES Allergy Unknown ITCHY Uncoded 08/17/18 12:06 THROAT Physical Exam Vitals: Vital Signs Temp Pulse Pulse Resp BP BP Pulse Ox 07/11/19 04:36 98.8 F 65 18 101/63 96 07/11/19 00:07 98.1 F 60 18 111/69 94 L 07/10/19 22:02 98.6 F 64 18 119/82 96 07/10/19 21:04 98.5 F 73 18 122/82 100 Intake and Output 07/10/19 07/11/19 07/11/19 22:59 06:59 14:59 Other: Voiding Method Toilet # Voids 1 Weight 58.967 kg PHYSICAL EXAMINATION: GENERAL: The patient is alert and oriented x3, not in any acute distress. Well developed, well nourished. HEENT: Pupils are round and equally reacting to light. EOMI. No scleral icterus. No conjunctival pallor. Normocephalic, atraumatic. No pharyngeal erythema. No thyromegaly. CARDIOVASCULAR: S1 and S2 present. No murmurs, rubs, or gallops. PULMONARY: Chest is clear to auscultation, no wheezing or crackles. ABDOMEN: Soft, nontender, nondistended, normoactive bowel sounds. No palpable or ganomegaly. MUSCULOSKELETAL: No joint swelling or deformity. EXTREMITIES: No cyanosis, clubbing, or pedal edema. NEUROLOGICAL: Gross neurological examination did not reveal any focal deficits. SKIN: No rashes. Results CBC & Chem 7: 07/10/19 21:36 07/10/19 21:36 Labs: Abnormal Lab Results - Last 24 Hours (Table) 07/10/19 07/10/19 07/10/19 Range/Units 21:36 21:36 21:36 Lymphocytes # 0.4 L (1.0-4.8) k/uL Glucose 108 H (74-99) mg/dL Urine Appearance Cloudy H (Clear) Urine Protein 1+ H (Negative) Urine Ketones 2+ H (Negative) Urine Blood Small H (Negative) Urine Bacteria Rare H (None) /hpf Urine Mucus Many H (None) /hpf Thrombosis Risk Factor Assmnt - Choose All That Apply Any of the Below Risk Factors Present?: Yes Each Factor Represents 1 point: Age 41-60 years Other Risk Factors: No Other congenital or acquired thrombophilia - If yes, enter type in comment: No Thrombosis Risk Factor Assessment Total Risk Factor Score: 1 Thrombosis Risk Factor Assessment Level: Low Risk Assessment and Plan Plan: Acute on chronic diarrhea: Acute diarrhea may be gastroenteritis rule out C. diff gastroenterology was consulted. Chronic diarrhea is being worked up. As I do not know which workup was already done I'm not ordering any tests for chronic diarrhea as gastroenterology was doing those tests as an outpatient and gastric ulcers consulted here. -Asthma without any acute exacerbation -Hypothyroidism -Glycosuria will obtain hemoglobin A1c -Due to prophylaxis early ambulation
[2019-07-11 15:07] VITALS: BMI 24.5
[2019-07-11] MEDS: LEVOTHYROXINE 112 MCG TAB PO SCH (15:21)
[2019-07-11] MEDS: PANTOPRAZOLE 40 MG/10 ML VIAL IVP SCH ×2 (15:21→22:07)
[2019-07-11 15:51] VITALS: RESP 16
--- NOTE | 2019-07-11 18:13 | CONS ---
CONSULTATION DATE OF SERVICE: 07/11/2019 REASON FOR CONSULTATION: Nausea, vomiting, diarrhea. HISTORY OF PRESENT ILLNESS: The patient is a 58-year-old pleasant white female admitted to the hospital with acute onset of worsening nausea, vomiting, diarrhea that started 2 days ago. The patient initially started having diffuse abdominal pain followed by multiple episodes of nausea, vomiting, diarrhea. She threw up at least 10 times and she had at least 10-15 loose watery bowel movements that started on Monday. She came to the emergency room yesterday and subsequently admitted to the hospital for further evaluation. The patient has chronic intermittent abdominal pain associated with intermittent nausea, vomiting, and diarrhea on and off for the last 2 years duration. She underwent an upper endoscopy as well as colonoscopy in August of 2018 for the same symptoms and was noted to have some gastritis. Multiple biopsies in the duodenum as well as ascending and descending colon were all unremarkable. The patient was treated for GERD with Pepcid and she was doing well on an outpatient basis. She usually takes Imodium as needed for the intermittent diarrhea. Since being admitted to the hospital, she did have stool studies done. C-difficile toxin was requested, results are still pending at the time of this dictation. She denies any recent antibiotic use. No recent travel history. No new medications that she has started recently. PAST MEDICAL HISTORY: Significant for hypothyroidism, GERD, asthma. PAST SURGICAL HISTORY: Ovarian cyst surgery, carpal tunnel surgery. MEDICATIONS: At home include ProAir, fluticasone, probiotic, Imodium, cholestyramine, Synthroid. apple and beverly. SOCIAL HISTORY: No smoking. No alcohol use. FAMILY HISTORY: Unremarkable. Mother had breast cancer. Father had some kind of blood disorder. REVIEW OF SYSTEMS: CARDIOPULMONARY: No chest pain, shortness of breath. GENITOURINARY: No dysuria, hematuria. MUSCULOSKELETAL: Unremarkable. SKIN unremarkable. ENDOCRINE unremarkable. PSYCHIATRIC unremarkable. NEUROLOGY unremarkable. ENT/vision unremarkable. CONSTITUTIONAL: No recent weight loss. No fever, chills or night sweats. PHYSICAL EXAMINATION: He appears comfortable in no apparent distress. Vital signs stable. Blood pressure is 101/63, pulse is 65, temperature 98.8. HEENT examination unremarkable. Conjunctivae pink. Sclerae anicteric. Oral cavity no lesions. NECK: No JVD or lymph node enlargement. CHEST: Clear to auscultation. HEART: Regular rate and rhythm. ABDOMEN: Soft. Bowel sounds are positive. No organomegaly. EXTREMITIES: No pedal edema. SKIN: No rashes. NEUROLOGIC: Alert and oriented x3. No focal deficits. LABS: Done at the time of admission to the hospital: WBC 7.9, hemoglobin 14.7, platelets are normal. Basic metabolic panel is within normal limits. Stool studies are still pending. IMPRESSION: This is a lady who presents to the hospital with acute onset of nausea, vomiting, diarrhea that started about 4 days ago, which has been progressively getting worse with multiple episodes of diarrhea with bowel movements anywhere from 10 to 15 a day which are loose to watery in consistency with no bleeding. She had a similar episode in August of 2018 at which time an EGD and colonoscopy done by me with biopsies was unremarkable. In between episodes, she usually has chronic intermittent diarrhea with 3 to 4 loose bowel movements in the morning and usually takes Imodium or Questran with some relief in his symptoms, with worsening symptomatology, possibility of superimposed acute viral gastroenteritis or other bacterial infections need to be considered. RECOMMENDATIONS: 1. Obtain C difficile toxin. 2. Stool cultures. 3. . 4. Continue with antiemetics and PPIs for now. 5. The studies are negative. Start her on antimotility agents. 6. No plans on any endoscopic intervention at this time. 7. Once the symptoms improve, she can be discharged home with outpatient followup in 2 weeks. Thank you for this consultation. MMKIMANIL / JIM: [id number] /
[2019-07-12 01:30] LABS: Hemoglobin A1C 5.5 % (4.0-6.0)
[2019-07-12 05:16] VITALS: BP 101/67; PULSE 65; TEMP 98
[2019-07-12] MEDS: LEVOTHYROXINE 112 MCG TAB PO SCH (06:24)
[2019-07-12] MEDS: SODIUM CHLORIDE 0.9% 1,000 ML IV SCH (06:25)
[2019-07-12] MEDS ORDERED: LEVOTHYROXINE 112 MCG TAB PO SCH (06:30)
[2019-07-12 07:37] LABS: African American GFR (CKD) >90 (>60 ml/min/1.73 sqM); Anion Gap 9 mmol/L; Blood Urea Nitrogen 11 mg/dL (7-17); Calcium 8.5 mg/dL (8.4-10.2); Carbon Dioxide 25 mmol/L (22-30); Chloride 106 mmol/L (98-107); Glucose 58 mg/dL (74-99); Potassium 3.8 mmol/L (3.5-5.1); Sodium 140 mmol/L (137-145)
[2019-07-12] MEDS: PANTOPRAZOLE 40 MG/10 ML VIAL IVP SCH (07:41)
[2019-07-12] MEDS ORDERED: SYMBICORT 160-4.5 MCG INHALER INHALATION SCH (08:00)
[2019-07-12] MEDS ORDERED: CHOLESTYRAMINE (WITH SUGAR) 4 GM PACKET PO SCH (12:00)
--- NOTE | 2019-07-12 12:50 | P.DS ---
Providers Date of admission: 07/10/19 22:38 Expected date of discharge: 07/12/19 Attending physician: Stephanie Wiggins Consults: 07/10/19 22:38 Consult Physician Urgent Consulting Provider: Lulu Ewing Consult Reason/Comments: established patient Do you want consulting provider notified?: Yes, Notify in am Primary care physician: [facility] Course: Final diagnosis Acute on chronic diarrhea, possible gastroenteritis Asthma without any acute exacerbation Hypothyroidism Glycosuria DVT prophylaxis Discharge disposition Patient is being discharged in a stable condition with guarded prognosis to home and will follow-up with primary care provider upon discharge. Patient will also follow-up with gastroenterology Dr. Ewing in the outpatient setting in 1-2 weeks time. Total time taken is 35 minutes. History of present illness This is a 58-year-old female who came in with epigastric abdominal discomfort along with nausea, vomiting, and excessive diarrhea and was being closely monitored. GI was consulted and will follow-up with patient in the outpatient setting in 2 weeks time. No surgical interventions at this time. Patient has a history of multiple episodes of diarrhea intermittently and takes Imodium as needed at home. During hospitalization patient was tested for C. diff and was negative. Patient was given Imodium and states is helping. Patient's nausea and vomiting has subsided and was able to start eating last night and tolerating with no acute overnight events. Patient met with dietitian and discussed avoiding gluten products. Patient would also like to follow-up with dietitian in the outpatient setting. Possible referral from primary care provider or Dr. Ewing will be needed. This was discussed at length with the patient and patient verbalizes understanding and agrees with the plan. Currently patient's condition is stable with much improvement and states that she would like to go home today. Patient denies any chest pain, shortness of breath, or palpitations at this time. Patient is afebrile. Patient denies any nausea or vomiting and is tolerating diet. Patient denies any abdominal discomfort. Guarded prognosis. Patient is stable for discharge today. On exam vital signs are stable. Temp is 98F, pulse is 65, respirations are 16, blood pressure is 101/67, oxygen saturation is 97% on room air. Cardio S1 and S2 are heard. Respiratory system shows clear to auscultation. Abdomen is soft and nontender. Nervous system shows no focal deficits and gait is steady. Please refer to medication reconciliation sheet for a list of medications. Patient Condition at Discharge: Stable Plan - Discharge Summary Discharge Rx Participant: No New Discharge Prescriptions: New Pantoprazole [Protonix] 40 mg PO AC-BID 30 Days #60 tablet. Continue Albuterol Sulfate [Proair Hfa] 1 - 2 puff INHALATION RT-Q6H PRN PRN Reason: Shortness Of Breath L.acidoph,Paracasei, B.lactis [Probiotic] 1 cap PO DAILY Fluticasone/Salmeterol [Fluticasone-Salmeterol 113-14] 1 puff INHALATION RT- DAILY Loperamide HCl [Imodium A-D] 2 - 4 mg PO QID PRN PRN Reason: Diarrhea Levothyroxine Sodium [Synthroid] 112 mcg PO DAILY Discontinued Cholestyramine (with Sugar) [Cholestyramine Packet] 4 gm PO DAILY Discharge Medication List Albuterol Sulfate [Proair Hfa] 1 - 2 puff INHALATION RT-Q6H PRN 08/17/18 [History] Fluticasone/Salmeterol [Fluticasone-Salmeterol 113-14] 1 puff INHALATION RT- DAILY 08/17/18 [History] L.acidoph,Paracasei, B.lactis [Probiotic] 1 cap PO DAILY 08/17/18 [History] Loperamide HCl [Imodium A-D] 2 - 4 mg PO QID PRN 08/22/18 [History] Levothyroxine Sodium [Synthroid] 112 mcg PO DAILY 07/10/19 [History] Pantoprazole [Protonix] 40 mg PO AC-BID 30 Days #60 tablet. 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 Discharge Disposition: HOME SELF-CARE
[2019-07-12] MEDS ORDERED: PANTOPRAZOLE 40 MG TABLET PO SCH (17:30)
== END 2019-07-12 12:58 | disposition home or self-care (01) ==
LOC: EC 20:51 → 4MS4W 22:38
PROVIDERS: ADMIT Hospitalist; ATTEND Hospitalist
DX: R19.7 Diarrhea, unspecified (principal); R11.2 Nausea with vomiting, unspecified; R10.13 Epigastric pain; J45.909 Unspecified asthma, uncomplicated; E03.9 Hypothyroidism, unspecified; R81 Glycosuria; K21.9 Gastro-esophageal reflux disease without esophagitis; Z14.8 Genetic carrier of other disease; Z79.890 Hormone replacement therapy; Z79.51 Long term (current) use of inhaled steroids; Z79.899 Other long term (current) drug therapy; Z91.018 Allergy to other foods; Z80.3 Family history of malignant neoplasm of breast; Z83.2 Family history of diseases of the blood and blood-forming organs and certain disorders involving the immune mechanism
CPT/HCPCS: 96376 ×2; 96361 ×3; 96375 ×2; 96372; 96374; 99285; 36415; 94640 ×2; 80053; 80048; 83690; 83735; 85025; 81001; 87324; 83036; 74018; G0378 ×3; J1200; J0500; J2405; C9113 ×2

== ENCOUNTER → 2019-08-07 | Outpatient (CLI) | payer OTHER ==
[2019-08-07 11:30] VITALS: BMI 28.0
== END | disposition home or self-care (01) ==
LOC: DBWHC3 09:57
PROVIDERS: ATTEND Family Medicine
DX: K21.9 Gastro-esophageal reflux disease without esophagitis (principal); R19.7 Diarrhea, unspecified
CPT/HCPCS: 97802

== ENCOUNTER → 2021-05-13 | Outpatient (CLI) | payer OTHER ==
[2021-05-13 16:41] VITALS: BMI 24.6
== END ==
LOC: DBWHC3 10:18
PROVIDERS: ATTEND Internal Medicine Gastroenterology
DX: K31.84 Gastroparesis (principal); K21.9 Gastro-esophageal reflux disease without esophagitis; K58.9 Irritable bowel syndrome, unspecified; Z91.018 Allergy to other foods
CPT/HCPCS: 97802

== ENCOUNTER → 2024-07-25 | Outpatient (CLI) | payer MEDICARE ==
--- NOTE | 2024-07-25 14:55 | CT ---
EXAMINATION TYPE: CT chest wo con DATE OF EXAM: 07/25/2024 COMPARISON: None HISTORY: lump/swelling on right side/ BB placed on bump CT DLP: 254.9 mGycm. Automated Exposure Control for Dose Reduction was Utilized. TECHNIQUE: CT scan of the thorax is performed without IV contrast. FINDINGS: LUNGS: The lungs are grossly clear, there is no concerning parenchymal mass or nodule identified. T here is no pleural effusion or pneumothorax seen. The tracheobronchial tree is patent. MEDIASTINUM: Lack of IV contrast is noted to limit evaluation for mediastinal and especially hilar ad enopathy. There are no definitive greater than 1 cm hilar or mediastinal lymph nodes. No cardiomega ly or pericardial effusion is seen. OTHER: No additional significant abnormality is seen. IMPRESSION: No significant abnormality seen. Follow-up recommendations for incidental pulmonary nodules are per [employer] or [employer]. [facility], , 07/25/2024 12:07 PM
== END | disposition home or self-care (01) ==
LOC: RADCTMAIN 11:36
PROVIDERS: ATTEND Family Medicine
DX: R22.2 Localized swelling, mass and lump, trunk (principal)
CPT/HCPCS: 71250